=== PATIENT | male | born 1965 | race Caucasian/White ===

== ENCOUNTER 2019-03-31 06:40 | Emergency (ER) | payer BC ==
[~2019-03-31] VITALS: Ht 165.1 cm; Wt 65.0 kg
[~2019-03-31 06:40] MED LIST: IBUP-1984 PO; NO HOME MEDS
[2019-03-31] MEDS ORDERED: aspirin 325mg tablet PO ONE (07:05)
[2019-03-31 07:35] LABS: PARTIAL THROMBOPLASTIN TIME 26 SECONDS (22-32)
[2019-03-31 07:37] LABS: ALANINE AMINOTRANSFERASE 32 U/L (12-78); ALBUMIN 3.6 G/DL (3.4-5.0); ALBUMIN/GLOBULIN RATIO 1.3 (1.1-1.5); ALKALINE PHOSPHATASE 44 IU/L (46-116); ANION GAP 7 (8-16); ASPARTATE AMINO TRANSFERASE 13 U/L (10-37); BLOOD UREA NITROGEN 19 MG/DL (7-18); BUN/CREATININE RATIO 22.6 (5.4-32.0); CALCIUM 8.6 MG/DL (8.5-10.1); CHLORIDE 108 MMOL/L (99-107); CREATININE 0.84 MG/DL (0.60-1.10); GLUCOSE 97 MG/DL (70-104); SODIUM 140 MMOL/L (135-145); TOTAL PROTEIN 6.3 G/DL (6.4-8.2); eGFR > 90 ML/MIN
[2019-03-31 07:39] LABS: BASOPHILS # (AUTO) 0.1 X10'3 (0-0.2); EOSINOPHILS # (AUTO) 0.2 X10'3 (0-0.9); EOSINOPHILS % (AUTO) 2.8 % (0-6); HEMATOCRIT 43.5 % (42.0-52.0); LYMPHOCYTES # (AUTO) 1.7 X10'3 (1.1-4.8); LYMPHOCYTES % (AUTO) 27.8 % (21-51); MEAN CORPUSCULAR HEMOGLOBIN 29.7 PG (27.0-31.0); MEAN CORPUSCULAR HGB CONC 34.4 g/dL (33.0-36.5); MEAN CORPUSCULAR VOLUME 86.2 FL (78-98); MEAN PLATELET VOLUME 8.3 FL (7.4-10.4); MONOCYTES # (AUTO) 0.6 X10'3 (0-0.9); MONOCYTES % (AUTO) 9.1 % (2-12); NEUTROPHILS # (AUTO) 3.7 X10'3 (1.8-7.7); NEUTROPHILS % (AUTO) 59.3 % (42-75); PLATELET COUNT 258 X10'3 (140-440); RED BLOOD COUNT 5.05 X10'6 (4.70-6.10); RED CELL DISTRIBUTION WIDTH 13.2 % (11.5-14.5); WHITE BLOOD COUNT 6.3 X10'3 (4.5-11.0)
[2019-03-31 09:49] VITALS: BP 132/97
== END 2019-03-31 09:51 | disposition home or self-care (01) ==
LOC: ER 06:41
DX: R07.89 Other chest pain (principal); Z79.899 Other long term (current) drug therapy
CPT/HCPCS: 36415; 71045; 80053; 84484; 85025; 85610; 85730; 93005; 99284

== ENCOUNTER 2023-05-01 07:31 | Day surgery (SDC) | payer BC, OTHER ==
[2023-04-25 15:50] LABS: BASOPHILS # (AUTO) 0.1 X10'3 (0-0.2); BASOPHILS % (AUTO) 0.9 % (0-1); EOSINOPHILS # (AUTO) 0.1 X10'3 (0-0.9); EOSINOPHILS % (AUTO) 1.6 % (0-6); LYMPHOCYTES # (AUTO) 2.5 X10'3 (1.1-4.8); LYMPHOCYTES % (AUTO) 29.4 % (21-51); MEAN CORPUSCULAR HEMOGLOBIN 29.7 PG (27.0-31.0); MEAN CORPUSCULAR HGB CONC 34.3 g/dL (33.0-36.5); MEAN CORPUSCULAR VOLUME 86.5 FL (78-98); MEAN PLATELET VOLUME 8.5 FL (7.4-10.4); MONOCYTES # (AUTO) 0.7 X10'3 (0-0.9); MONOCYTES % (AUTO) 8.4 % (2-12); NEUTROPHILS % (AUTO) 59.7 % (42-75); PRE OP HEMATOCRIT 44.9 % (42.0-52.0); PRE OP HEMOGLOBIN 15.4 g/dL (14.0-17.9); PRE OP PLATELET COUNT 275 X10'3 (140-440); PRE OP WHITE BLOOD COUNT 8.4 10'3 (4.8-10.8); RED BLOOD COUNT 5.19 X10'6 (4.70-6.10); RED CELL DISTRIBUTION WIDTH 12.9 % (11.5-14.5)
[2023-04-25 15:57] LABS: ALBUMIN 4.1 G/DL (3.4-5.0); ALBUMIN/GLOBULIN RATIO 1.5 (1.1-1.5); ALKALINE PHOSPHATASE 49 IU/L (46-116); BLOOD UREA NITROGEN 14 MG/DL (7-18); BUN/CREATININE RATIO 16.1 (10.0-20.0); CALCIUM 9.4 MG/DL (8.5-10.1); CHLORIDE 103 MMOL/L (99-107); CREATININE 0.87 MG/DL (0.60-1.10); PRE OP ALT 29 U/L (30-65); PRE OP ANION GAP 3 (8-16); PRE OP AST 12 U/L (10-37); PRE OP BILIRUB, TOTAL 1.1 MG/DL (0.0-1.0); PRE OP GLUCOSE 89 MG/DL (70-104); PRE OP POTASSIUM 4.3 MMOL/L (3.4-5.1); PRE OP SODIUM 137 MMOL/L (135-145); TOTAL CARBON DIOXIDE 30.7 MMOL/L (24-32); TOTAL PROTEIN 6.9 G/DL (6.4-8.2); eGFR 90 ML/MIN
[2023-05-01] VITALS (12 sets, daily range): BP systolic 111–151; BP diastolic 51–95; PULSE 73–96; RESP 13–18; TEMP 97.9; O2SAT 98–100
[~2023-05-01] VITALS: Ht 165.1 cm; Wt 62.1 kg
[~2023-05-01 07:31] MED LIST changes: +AREDS 2; +ASCO250T48 PO; +BUPIVAcaine/PF 5 mg/ml 10ml ONE; +CHOL200074 PO; -IBUP-1984 PO; +KRIL500C PO; +LIDOcaine 1% 30ml preserv. free vial ONE; +MULT-620 PO; -NO HOME MEDS; +ROSU10TA28 PO; +UBID100C16 PO; +VITA400T10 PO; +cefazolin 2gm/D5W 100mL 100 ML IV ONE; +famotidine 20mg tablet PO ONE; +ringers solution, lacted 1,000 ML IV SCH
[2023-05-01] MEDS ORDERED: sevoflurane 250ml liquid IH ONE (09:09)
[2023-05-01] MEDS ORDERED: neostigmine methylsulfate 1 MG/ML 10ml vial ONE (09:09)
[2023-05-01] MEDS ORDERED: dexamethasone sod phosphate 10mg/ml inj ONE (09:09)
[2023-05-01] MEDS ORDERED: propofol inj 20 ML IV ONE (09:14)
[2023-05-01] MEDS ORDERED: rocuronium 10mg/ml inj IV ONE (09:14)
[2023-05-01] MEDS ORDERED: LIDOcaine 2% (20mg/ml) 5ml vial ONE (09:14)
[2023-05-01] MEDS ORDERED: ondansetron/PF 4mg/2ml inj ONE (09:15)
[2023-05-01] MEDS ORDERED: midazolam 1 mg/ML 2ml injection ONE (09:15)
[2023-05-01] MEDS ORDERED: glycopyrrolate 0.2mg/ml inj ONE (09:15)
[2023-05-01] MEDS ORDERED: fentaNYL/PF 50MCG/1 ML 2ML syringe ONE (09:15)
[2023-05-01] MEDS ORDERED: fentaNYL/PF 50MCG/1 ML 2ML syringe IV PRN ×2 (09:50)
[2023-05-01] MEDS ORDERED: morphine 2 MG/ML inj. syringe IV PRN (09:50)
[2023-05-01] MEDS ORDERED: hydrALAZINE 20mg/ml inj. IV PRN (09:50)
[2023-05-01] MEDS ORDERED: labetalol 20mg/4ml (5mg/ml) syringe IV PRN (09:50)
[2023-05-01] MEDS ORDERED: ondansetron/PF 4mg/2ml inj IV PRN (09:50)
[2023-05-01] MEDS ORDERED: morphine 4 MG/ML inj SYRINge IV PRN (09:50)
[2023-05-01] MEDS ORDERED: ringers solution, lacted 1,000 ML IV SCH (09:50)
[2023-05-01] MEDS ORDERED: HYDROcodone/acetaminophen 5mg/325mg tablet PO PRN (10:40)
--- NOTE | 2023-05-01 10:40 | NUR ---
Received from OR via , accompanied by Anesthesiologist and report given by Anesthesiolgist. PATIENT A&OX4, DENIES PAIN, V/S WNL, SCD ON , PIV 20G LUE, DERMABONDED LAPS SITES CLOSED CDI TO ABDOMEN.
--- NOTE | 2023-05-01 12:12 | NUR ---
PATIENT UNABLE TO VOID WITH BLADDER SCAN >269CC
[2023-05-01] MEDS ORDERED: LidoCAINE 2% Topical Jelly 11mL syringe MM ONE (12:50)
--- NOTE | 2023-05-01 13:20 | NUR ---
PATIENT A&OX4, DENIES PAIN, V/S WNL, SCD OFF , PIV 20G LUE D/C, DERMABONDED LAPS SITES CLOSED CDI TO ABDOMEN. PATIENT UNABLE TO VOID OVER 300CC IN BLADDER SCANNED. F/C PLACED PER DR PURDY ORDER WITH NO COMPLICATIONS OBSERVED.. i HAVE REVIEWED MANAGEMENT OF CATH AND D/C INSTRUCTIONS AND PATIENT HAS VERBALIZED UNDERSTANDING. PATIENT D/C HOME WITH ALL BELONGINGS AND FAMILY GAVE TRANSPORT.
== END 2023-05-01 13:20 | disposition home or self-care (01) ==
LOC: PAS 07:31
PROVIDERS: ATTEND Surgery
DX: K40.20 Bilateral inguinal hernia, without obstruction or gangrene, not specified as recurrent (principal); Z79.01 Long term (current) use of anticoagulants; Z79.899 Other long term (current) drug therapy; E78.5 Hyperlipidemia, unspecified; Z98.890 Other specified postprocedural states
CPT/HCPCS: 36415; 49650; 80053; 82948; 85025; 93005; C1781; J0690; J1100; J2250; J2405; J2704; J2710; J3010; J3490; J7030; J7120; S2900; Z7506; Z7508; Z7512; A4215; A4618